=== PATIENT | female | born 1980 | race African-American/Black ===

== ENCOUNTER 2024-01-15 10:32 | Emergency (ER) | payer MEDICAID ==
[~2024-01-15] VITALS: Ht 165.1 cm; Wt 60.0 kg
[2024-01-15 10:34] VITALS: O2SAT 100
[2024-01-15] MEDS: ASPIRIN 325MG EC TABLET PO ONE (11:39)
[2024-01-15 11:41] LABS: CHLORIDE 106 mEq/L (98-107); POTASSIUM 3.8 mEq/L (3.5-5.1); SODIUM 138 mEq/L (136-145)
[2024-01-15 11:42] LABS: CALCIUM 9.1 mg/dL (8.7-10.4); CARBON DIOXIDE 24 mEq/L (21-32)
[2024-01-15 11:47] LABS: CREATININE 0.9 mg/dL (0.6-1.0); GLUCOSE 89 mg/dL (70-105); UREA NITROGEN BLOOD 7 mg/dL (9-23)
[2024-01-15 11:53] LABS: BASOPHILS % 1.2 % (0.0-2.0); EOSINOPHILS % 1.4 % (0.0-5.0); HEMATOCRIT. 33.3 % (36.0-48.0); HEMOGLOBIN. 11.1 g/dL (12.0-16.0); LYMPHOCYTES % 24.9 % (20.0-50.0); MEAN CORPUSCULAR HEMOGLOBIN 28.9 pg (28.0-32.0); MEAN CORPUSCULAR HGB CONC 33.2 g/dL (31.0-37.0); MEAN PLATELET VOLUME 7.4 fl (7.4-10.4); MONOCYTES % 14.3 % (2.0-8.0); NEUTROPHILS % 58.2 % (40.0-76.0); PLATELET 272 x1000/uL (130-400); RED BLOOD CELL COUNT 3.83 mill/uL (4.2-5.4); RED CELL DISTRIBUTION WIDTH 14.6 % (11.6-14.6); WHITE BLOOD COUNT 4.5 x1000/uL (4.5-11.0)
[2024-01-15 11:57] LABS: HCG SCREEN NEGATIVE
[2024-01-15 12:05] LABS: TROPONIN I HIGH SENSITIVITY < 4 ng/L (3.0-34)
[2024-01-15] MEDS ORDERED: TOPUD MT (14:25)
[2024-01-15] MEDS ORDERED: DEXT30SU17 MT (14:25)
[2024-01-15] MEDS ORDERED: ALBU90AE INH (14:25)
[2024-01-15 14:45] VITALS: BP 110/63; PULSE 67; RESP 17; TEMP 98.4
== END 2024-01-15 14:48 | disposition home or self-care (01) ==
LOC: ER 10:47
DX: R05.9 Cough, unspecified (principal); F17.200 Nicotine dependence, unspecified, uncomplicated; I49.9 Cardiac arrhythmia, unspecified; Z20.822 Contact with and (suspected) exposure to COVID-19
CPT/HCPCS: 36415; 71045; 80048; 83880; 84484; 84703; 85025; 85379; 87426; 93005; 99285

== ENCOUNTER 2024-01-17 12:12 | Emergency (ER) | payer MEDICAID ==
[~2024-01-17] VITALS: Ht 162.6 cm; Wt 50.0 kg
[~2024-01-17 12:12] MED LIST: ALBU90AE INH; DEXT30SU17 MT; TOPUD MT
[2024-01-17 12:14] VITALS: O2SAT 99
[2024-01-17 12:42] VITALS: BP 160/84; PULSE 90; RESP 19; TEMP 98.3
== END 2024-01-17 13:40 | disposition home or self-care (01) ==
LOC: ER 12:12
DX: R53.1 Weakness (principal); I10 Essential (primary) hypertension; Z86.79 Personal history of other diseases of the circulatory system
CPT/HCPCS: 99283

== ENCOUNTER 2024-01-26 12:05 | Emergency (ER) | payer MEDICAID ==
[~2024-01-26] VITALS: Ht 162.6 cm; Wt 68.0 kg
[2024-01-26 12:11] VITALS: BP 110/72; PULSE 65; RESP 16; TEMP 98.1; O2SAT 100
[2024-01-26 12:38] LABS: HEMATOCRIT 37.3 % (36.0-48.0); HEMOGLOBIN 12.2 g/dL (12.0-16.0); MEAN CORPUSCULAR HEMOGLOBIN 28.8 pg (28.0-32.0); MEAN CORPUSCULAR HGB CONC 32.8 g/dL (31.0-37.0); PLATELET 317 x1000/uL (130-400); RED BLOOD CELL COUNT 4.23 mill/uL (4.2-5.4); RED CELL DISTRIBUTION WIDTH 14.7 % (11.6-14.6); WHITE BLOOD COUNT 3.4 x1000/uL (4.5-11.0)
[2024-01-26 12:45] LABS: HCG SCREEN NEGATIVE
[2024-01-26 12:55] LABS: CHLORIDE 107 mEq/L (98-107); POTASSIUM 4.1 mEq/L (3.5-5.1); SODIUM 137 mEq/L (136-145)
[2024-01-26 12:56] LABS: CALCIUM 9.6 mg/dL (8.7-10.4); CARBON DIOXIDE 26 mEq/L (21-32)
[2024-01-26 13:01] LABS: CREATININE 0.9 mg/dL (0.6-1.0); GLUCOSE 88 mg/dL (70-105); UREA NITROGEN BLOOD 9 mg/dL (9-23)
[2024-01-26 13:03] LABS: ALANINE AMINOTRANSFERASE 10 IU/L (10-49); ALBUMIN 4.6 g/dL (3.2-4.8); ASPARTATE AMINOTRANSFERASE 15 IU/L (<34); BILIRUBIN TOTAL 0.5 mg/dL (0.1-1.0); PROTEIN TOTAL 7.6 g/dL (6.0-8.3)
== END 2024-01-26 14:03 | disposition home or self-care (01) ==
LOC: ER 12:05
DX: R20.2 Paresthesia of skin (principal); I10 Essential (primary) hypertension; E78.00 Pure hypercholesterolemia, unspecified; Z98.890 Other specified postprocedural states
CPT/HCPCS: 36415; 80053; 84703; 85027; 99283

== ENCOUNTER 2024-01-26 14:08 | Emergency (ER) | payer MEDICAID ==
[~2024-01-26] VITALS: Ht 167.6 cm; Wt 56.0 kg
[2024-01-26 14:14] VITALS: TEMP 97.2; O2SAT 99
[2024-01-26 17:34] VITALS: BP 118/78; PULSE 68; RESP 14
== END 2024-01-26 17:36 | disposition home or self-care (01) ==
LOC: ER 14:08
DX: R20.0 Anesthesia of skin (principal); E78.00 Pure hypercholesterolemia, unspecified; Z98.890 Other specified postprocedural states
CPT/HCPCS: 81025; 99284

== ENCOUNTER 2024-01-29 19:13 | Emergency (ER) | payer MEDICAID ==
[~2024-01-29] VITALS: Ht 170.2 cm; Wt 59.0 kg
[2024-01-29 19:26] VITALS: O2SAT 100
[2024-01-29 20:48] VITALS: BP 120/60; PULSE 75; RESP 14; TEMP 98.2
== END 2024-01-29 20:50 | disposition home or self-care (01) ==
LOC: ER 19:13
DX: R00.2 Palpitations (principal); F41.9 Anxiety disorder, unspecified; E78.00 Pure hypercholesterolemia, unspecified; I10 Essential (primary) hypertension
CPT/HCPCS: 71045; 93005; 99283; Z7610

== ENCOUNTER 2024-02-18 16:43 | Inpatient (IN) | payer MEDICAID ==
[~2024-02-18] VITALS: Ht 162.6 cm; Wt 51.3 kg
[2024-02-18 19:28] LABS: BASOPHILS % 0.8 % (0.0-2.0); EOSINOPHILS % 2.2 % (0.0-5.0); HEMATOCRIT. 36.4 % (36.0-48.0); LYMPHOCYTES % 27.2 % (20.0-50.0); MEAN CORPUSCULAR HEMOGLOBIN 28.6 pg (28.0-32.0); MEAN CORPUSCULAR HGB CONC 32.9 g/dL (31.0-37.0); MEAN PLATELET VOLUME 6.8 fl (7.4-10.4); MONOCYTES % 13.5 % (2.0-8.0); NEUTROPHILS % 56.3 % (40.0-76.0); PLATELET 264 x1000/uL (130-400); RED BLOOD CELL COUNT 4.18 mill/uL (4.2-5.4); RED CELL DISTRIBUTION WIDTH 14.6 % (11.6-14.6); WHITE BLOOD COUNT 4.3 x1000/uL (4.5-11.0)
[2024-02-18 19:32] LABS: CHLORIDE 106 mEq/L (98-107); POTASSIUM 4.6 mEq/L (3.5-5.1); SODIUM 138 mEq/L (136-145)
[2024-02-18 19:33] LABS: CARBON DIOXIDE 27 mEq/L (21-32)
[2024-02-18 19:34] LABS: CALCIUM 9.8 mg/dL (8.7-10.4)
[2024-02-18 19:38] LABS: CREATININE 0.9 mg/dL (0.6-1.0); GLUCOSE 85 mg/dL (70-105)
[2024-02-18 19:39] LABS: PARTIAL THROMBOPLASTIN TIME 27.8 sec (23.4-31.0); PROTHROMBIN TIME 11.1 sec (9.6-11.0)
[2024-02-18 19:40] LABS: TROPONIN I HIGH SENSITIVITY < 4 ng/L (3.0-34); UREA NITROGEN BLOOD < 5 mg/dL (9-23)
[2024-02-18] MEDS: ASPIRIN 325MG EC TABLET PO ONE (19:46)
[2024-02-18 20:02] LABS: HCG SCREEN NEGATIVE
[2024-02-18] MEDS: ONDANSETRON HCL 4MG/2ML INJ IV PRN (21:02)
[2024-02-18 23:15] VITALS: BP 134/65; PULSE 100; RESP 16; TEMP 36.4736
[2024-02-19] MEDS ORDERED: *PATIENT'S OWN MEDICATION STORAGE XX SCH (00:30)
[2024-02-19 06:00] LABS: BASOPHILS % 0.8 % (0.0-2.0); EOSINOPHILS % 2.2 % (0.0-5.0); HEMATOCRIT. 36.6 % (36.0-48.0); HEMOGLOBIN. 12.1 g/dL (12.0-16.0); LYMPHOCYTES % 29.6 % (20.0-50.0); MEAN CORPUSCULAR HEMOGLOBIN 28.8 pg (28.0-32.0); MEAN CORPUSCULAR HGB CONC 33.1 g/dL (31.0-37.0); MEAN PLATELET VOLUME 7.3 fl (7.4-10.4); MONOCYTES % 14.6 % (2.0-8.0); NEUTROPHILS % 52.8 % (40.0-76.0); PLATELET 278 x1000/uL (130-400); RED BLOOD CELL COUNT 4.21 mill/uL (4.2-5.4); RED CELL DISTRIBUTION WIDTH 14.9 % (11.6-14.6); WHITE BLOOD COUNT 3.9 x1000/uL (4.5-11.0)
[2024-02-19] MEDS ORDERED: IOHEXOL-350 100 ML BOTTLE ONE (07:16)
[2024-02-19 08:08] VITALS: BP 126/84; PULSE 78; RESP 20; TEMP 36.61404; O2SAT 100
[2024-02-19 09:02] LABS: CHLORIDE 107 mEq/L (98-107); POTASSIUM 3.4 mEq/L (3.5-5.1); SODIUM 139 mEq/L (136-145)
[2024-02-19 09:03] LABS: CARBON DIOXIDE 24 mEq/L (21-32)
[2024-02-19 09:04] LABS: CALCIUM 9.6 mg/dL (8.7-10.4)
[2024-02-19 09:08] LABS: CREATININE 0.9 mg/dL (0.6-1.0); GLUCOSE 82 mg/dL (70-105)
[2024-02-19 09:12] LABS: UREA NITROGEN BLOOD < 5 mg/dL (9-23)
[2024-02-19] MEDS: ASPIRIN 81MG EC TABLET PO SCH (11:00)
[2024-02-19 12:19] VITALS: BP 125/81; PULSE 77; RESP 20; TEMP 37.00296; O2SAT 98
[2024-02-19] MEDS: POTASSIUM CHLORIDE 20MEQ TABLET SR PO NR (13:42)
[2024-02-19] MEDS: CLOPIDOGREL 75MG TABLET PO SCH (13:43)
[2024-02-19 16:00] VITALS: BP 133/70; PULSE 81; RESP 20; TEMP 37.16964; O2SAT 99
[2024-02-19 20:00] VITALS: BP 132/79; PULSE 78; RESP 20; TEMP 36.44736; O2SAT 99
[2024-02-19] MEDS: ATORVASTATIN CALCIUM 40MG TABLET PO SCH (21:13)
[2024-02-20] VITALS: BP 113/65; PULSE 85; RESP 18; TEMP 36.72516; O2SAT 97
[2024-02-20 04:00] VITALS: BP 109/75; PULSE 81; RESP 20; TEMP 36.72516; O2SAT 99
[2024-02-20 08:17] VITALS: BP 116/82; PULSE 90; RESP 18; TEMP 35.94732; O2SAT 100
[2024-02-20 12:17] VITALS: BP 119/78; PULSE 86; RESP 20; TEMP 36.61404; O2SAT 100
[2024-02-20 13:22] LABS: VITAMIN B12 SERUM 990 pg/mL (211-911)
[2024-02-20 16:00] VITALS: BP 121/75; PULSE 85; RESP 18; TEMP 36.44736; O2SAT 100
[2024-02-20 17:18] LABS: *AMPHETAMINES SCREEN URINE NEGATIVE (NEGATIVE); *BARBITURATES SCREEN URINE NEGATIVE (NEGATIVE); *BENZODIAZEPINES SCREEN URINE NEGATIVE (NEGATIVE); *COCAINE SCREEN URINE NEGATIVE (NEGATIVE); CANNABINOID URINE SCREEN NEGATIVE (NEGATIVE); METHADONE URINE SCREEN NEGATIVE (NEGATIVE); OPIATES URINE SCREEN NEGATIVE (NEGATIVE); PHENCYCLIDINE URINE SCREEN NEGATIVE (NEGATIVE)
[2024-02-20 17:19] LABS: ECSTASY MDMA SCREEN URINE NEGATIVE (NEGATIVE)
[2024-02-20 20:00] VITALS: BP 126/80; PULSE 78; RESP 18; TEMP 36.6696; O2SAT 100
[2024-02-21] VITALS (9 sets, daily range): BP systolic 112–132; BP diastolic 73–97; PULSE 73–155; RESP 7–19; TEMP 36.33624–36.6696; O2SAT 99–100
[2024-02-21] MEDS ORDERED: ASPI-1406 PO (10:20)
[2024-02-21 11:29] LABS: BASOPHILS % 1.1 % (0.0-2.0); EOSINOPHILS % 2.1 % (0.0-5.0); HEMATOCRIT. 38.2 % (36.0-48.0); HEMOGLOBIN. 12.3 g/dL (12.0-16.0); LYMPHOCYTES % 22.5 % (20.0-50.0); MEAN CORPUSCULAR HEMOGLOBIN 28.1 pg (28.0-32.0); MEAN CORPUSCULAR HGB CONC 32.2 g/dL (31.0-37.0); MEAN CORPUSCULAR VOLUME 87.1 fL (81.0-99.0); MEAN PLATELET VOLUME 6.9 fl (7.4-10.4); MONOCYTES % 12.6 % (2.0-8.0); NEUTROPHILS % 61.7 % (40.0-76.0); PLATELET 291 x1000/uL (130-400); RED BLOOD CELL COUNT 4.39 mill/uL (4.2-5.4); RED CELL DISTRIBUTION WIDTH 15.1 % (11.6-14.6); WHITE BLOOD COUNT 3.2 x1000/uL (4.5-11.0)
[2024-02-21 11:32] LABS: CHLORIDE 106 mEq/L (98-107); POTASSIUM 3.7 mEq/L (3.5-5.1); SODIUM 139 mEq/L (136-145)
[2024-02-21 11:33] LABS: CALCIUM 9.4 mg/dL (8.7-10.4); CARBON DIOXIDE 28 mEq/L (21-32)
[2024-02-21 11:38] LABS: CREATININE 0.9 mg/dL (0.6-1.0); GLUCOSE 154 mg/dL (70-105)
[2024-02-21 12:07] LABS: UREA NITROGEN BLOOD < 5 mg/dL (9-23)
[2024-02-21] MEDS: DILTIAZEM HCL 5MG/ML 5ML VIAL IV NR ×2 (13:08→16:21)
[2024-02-21] MEDS: DILTIAZEM HCL 30MG TABLET PO SCH (13:08)
[2024-02-21] MEDS: AMIODARONE 200MG TABLET PO SCH (16:26)
[2024-02-21] MEDS ORDERED: DILTIAZEM HCL 5MG/ML 5ML VIAL IV PRN (16:30)
[2024-02-22] VITALS (10 sets, daily range): BP systolic 101–118; BP diastolic 73–79; PULSE 65–94; RESP 18–24; TEMP 36.6696–37.00296; O2SAT 98–100
[2024-02-22] MEDS ORDERED: DILT180T11 MT (11:52)
[2024-02-22] MEDS ORDERED: AMI2 PO (11:52)
[2024-02-22] MEDS: POLYETHYLENE GLYCOL 3350 (17GM) 1 DOSE PACK PO SCH (12:00)
[2024-02-23] MEDS ORDERED: DILTIAZEM HCL 90MG CAPSULE SR 12HR PO SCH (09:00)
[2024-02-23] MEDS ORDERED: AMIODARONE 200MG TABLET PO SCH (09:00)
[2024-02-23] MEDS ORDERED: ATOR10TA MT (14:55)
[2024-02-29] MEDS ORDERED: ATOR10TA69 MT (23:33)
== END 2024-02-22 14:15 | disposition home or self-care (01) | DRG 48 ==
LOC: ER 16:43 → EDBEDREQTM 21:08 → EDBEDREQ 21:08 → 7WST 22:34 → 5EST 02-21 14:40
PROVIDERS: ADMIT Internal Medicine; ATTEND Internal Medicine
DX: G90.8 Other disorders of autonomic nervous system (principal); G45.8 Other transient cerebral ischemic attacks and related syndromes; I47.10 Supraventricular tachycardia, unspecified; E78.00 Pure hypercholesterolemia, unspecified; E87.6 Hypokalemia; Z79.899 Other long term (current) drug therapy
CPT/HCPCS: 36415; 70496; 70498; 70551; 71045; 80048; 80061; 80305; 82607; 82962; 83036; 84153; 84443; 84484; 84703; 85025; 85651; 86038; 93005; 93306; 97162; 97165; 99291; J2405; J3490; Q9967

== ENCOUNTER 2024-02-25 10:59 | Emergency (ER) | payer MEDICAID ==
[~2024-02-25] VITALS: Ht 160 cm; Wt 60.0 kg
[~2024-02-25 10:59] MED LIST changes: -ALBU90AE INH; +ASPI-1406 PO; +ATOR10TA MT; -DEXT30SU17 MT; -TOPUD MT
[2024-02-25 11:05] VITALS: O2SAT 100
[2024-02-25 11:35] LABS: BASOPHILS % 0.5 % (0.0-2.0); EOSINOPHILS % 1.5 % (0.0-5.0); HEMATOCRIT. 36.8 % (36.0-48.0); HEMOGLOBIN. 12.2 g/dL (12.0-16.0); LYMPHOCYTES % 13.1 % (20.0-50.0); MEAN CORPUSCULAR HEMOGLOBIN 28.8 pg (28.0-32.0); MEAN CORPUSCULAR HGB CONC 33.2 g/dL (31.0-37.0); MEAN PLATELET VOLUME 6.9 fl (7.4-10.4); MONOCYTES % 11.8 % (2.0-8.0); NEUTROPHILS % 73.1 % (40.0-76.0); PLATELET 328 x1000/uL (130-400); RED BLOOD CELL COUNT 4.23 mill/uL (4.2-5.4); RED CELL DISTRIBUTION WIDTH 15.1 % (11.6-14.6); WHITE BLOOD COUNT 4.9 x1000/uL (4.5-11.0)
[2024-02-25 11:48] LABS: CHLORIDE 106 mEq/L (98-107); POTASSIUM 3.7 mEq/L (3.5-5.1); SODIUM 139 mEq/L (136-145)
[2024-02-25 11:49] LABS: CARBON DIOXIDE 28 mEq/L (21-32)
[2024-02-25 11:54] LABS: CREATININE 0.9 mg/dL (0.6-1.0); GLUCOSE 92 mg/dL (70-105)
[2024-02-25 12:00] LABS: TROPONIN I HIGH SENSITIVITY < 4 ng/L (3.0-34); UREA NITROGEN BLOOD < 5 mg/dL (9-23)
[2024-02-25 12:07] LABS: HCG SCREEN NEGATIVE
[2024-02-25] MEDS: DIAZEPAM 5 MG TABLET PO ONE (13:24)
[2024-02-25 15:09] LABS: TROPONIN I HIGH SENSITIVITY < 4 ng/L (3.0-34)
[2024-02-25 15:39] VITALS: BP 133/71; PULSE 80; RESP 18; TEMP 36.61404; O2SAT 100
[2024-02-29] MEDS ORDERED: ATOR10TA69 MT (23:33)
== END 2024-02-25 15:53 | disposition home or self-care (01) ==
LOC: ER 10:59
DX: R00.2 Palpitations (principal); E78.00 Pure hypercholesterolemia, unspecified
CPT/HCPCS: 36415; 80048; 84484; 84703; 85025; 93005; 99284

== ENCOUNTER 2024-03-03 07:33 | Emergency (ER) | payer MEDICAID ==
[~2024-03-03] VITALS: Ht 162.6 cm; Wt 50.0 kg
[~2024-03-03 07:33] MED LIST changes: +ATOR10TA69 MT
[2024-03-03 07:35] VITALS: O2SAT 100
[2024-03-03 08:12] LABS: HEMATOCRIT. 34.8 % (36.0-48.0); HEMOGLOBIN. 11.3 g/dL (12.0-16.0); MEAN CORPUSCULAR HEMOGLOBIN 28.5 pg (28.0-32.0); MEAN CORPUSCULAR HGB CONC 32.5 g/dL (31.0-37.0); MEAN CORPUSCULAR VOLUME 87.5 fL (81.0-99.0); MEAN PLATELET VOLUME 6.6 fl (7.4-10.4); PLATELET 293 x1000/uL (130-400); RED BLOOD CELL COUNT 3.98 mill/uL (4.2-5.4); RED CELL DISTRIBUTION WIDTH 15.1 % (11.6-14.6); WHITE BLOOD COUNT 3.1 x1000/uL (4.5-11.0)
[2024-03-03 08:13] LABS: DIFFERENTIAL COMMENT 1
[2024-03-03 08:20] LABS: CALCIUM 9.4 mg/dL (8.7-10.4); CARBON DIOXIDE 25 mEq/L (21-32); CHLORIDE 109 mEq/L (98-107); POTASSIUM 3.8 mEq/L (3.5-5.1); SODIUM 140 mEq/L (136-145)
[2024-03-03 08:25] LABS: CREATININE 0.9 mg/dL (0.6-1.0)
[2024-03-03 08:26] LABS: GLUCOSE 83 mg/dL (70-105); UREA NITROGEN BLOOD 10 mg/dL (9-23)
[2024-03-03 09:57] LABS: ANISOCYTOSIS 1+; PLATELET ESTIMATE NORMAL
[2024-03-03 10:46] VITALS: BP 112/74; PULSE 75; RESP 17; TEMP 37.00296; O2SAT 100
== END 2024-03-03 10:56 | disposition home or self-care (01) ==
LOC: ER 07:33 → CANBEDREQ 10:23 → ER 10:56
DX: R00.2 Palpitations (principal)
CPT/HCPCS: 80048; 83880; 85025; 36415; 71045; 93005; 99285; Z7610 ×3

== ENCOUNTER 2024-03-03 11:41 | Emergency (ER) | payer MEDICAID ==
[~2024-03-03] VITALS: Ht 162.6 cm; Wt 51.0 kg
[2024-03-03 12:03] VITALS: BP 133/74; PULSE 82; RESP 16; TEMP 98; O2SAT 100
[2024-03-03 12:17] LABS: BASOPHILS % 0.7 % (0.0-2.0); EOSINOPHILS % 0.7 % (0.0-5.0); HEMATOCRIT. 35.5 % (36.0-48.0); HEMOGLOBIN. 11.8 g/dL (12.0-16.0); LYMPHOCYTES % 17.1 % (20.0-50.0); MEAN CORPUSCULAR HEMOGLOBIN 28.9 pg (28.0-32.0); MEAN CORPUSCULAR HGB CONC 33.1 g/dL (31.0-37.0); MEAN CORPUSCULAR VOLUME 87.2 fL (81.0-99.0); MEAN PLATELET VOLUME 6.5 fl (7.4-10.4); MONOCYTES % 10.3 % (2.0-8.0); NEUTROPHILS % 71.2 % (40.0-76.0); PLATELET 308 x1000/uL (130-400); RED BLOOD CELL COUNT 4.08 mill/uL (4.2-5.4); RED CELL DISTRIBUTION WIDTH 14.9 % (11.6-14.6); WHITE BLOOD COUNT 5.6 x1000/uL (4.5-11.0)
[2024-03-03 12:27] LABS: CHLORIDE 106 mEq/L (98-107); POTASSIUM 4.3 mEq/L (3.5-5.1); SODIUM 137 mEq/L (136-145)
[2024-03-03 12:28] LABS: CALCIUM 9.9 mg/dL (8.7-10.4); CARBON DIOXIDE 23 mEq/L (21-32)
[2024-03-03 12:33] LABS: CREATININE 0.9 mg/dL (0.6-1.0); GLUCOSE 80 mg/dL (70-105); UREA NITROGEN BLOOD 8 mg/dL (9-23)
[2024-03-03 12:35] LABS: ALANINE AMINOTRANSFERASE 11 IU/L (10-49); ALBUMIN 4.8 g/dL (3.2-4.8); ASPARTATE AMINOTRANSFERASE 16 IU/L (<34); BILIRUBIN DIRECT 0.2 mg/dL (<=3.0); BILIRUBIN TOTAL 0.7 mg/dL (0.1-1.0)
[2024-03-03 12:36] LABS: PROTEIN TOTAL 7.8 g/dL (6.0-8.3)
[2024-03-03 14:23] LABS: TROPONIN I HIGH SENSITIVITY < 4 ng/L (3.0-34)
[2024-03-03 14:26] LABS: HCG SCREEN NEGATIVE
[2024-03-26] MEDS ORDERED: CELE-146 MT (17:20)
[2024-03-26] MEDS ORDERED: BACL-141 MT (17:20)
[2024-03-26] MEDS ORDERED: METO25TA6 PO (18:29)
[2024-03-28] MEDS ORDERED: ASPI-1160 PO (15:32)
[2024-03-28] MEDS ORDERED: DIGO-34 PO (15:32)
[2024-03-28] MEDS ORDERED: ATOR20TA PO (15:32)
[2024-03-28] MEDS ORDERED: FAMO20TA8 PO (15:32)
[2024-03-28] MEDS ORDERED: DILT60TA41 PO (15:32)
[2024-04-01] MEDS ORDERED: AMI2 MT (10:23)
[2024-04-01] MEDS ORDERED: DILT30TA3 PO (10:23)
[2024-04-03] MEDS ORDERED: AMI2 MT (13:13)
[2024-04-03] MEDS ORDERED: DILT30TA3 MT (13:13)
== END 2024-03-03 16:45 | disposition home or self-care (01) ==
LOC: ER 11:41
DX: R00.2 Palpitations (principal); M25.512 Pain in left shoulder; E78.00 Pure hypercholesterolemia, unspecified
CPT/HCPCS: 36415; 73030; 80048; 80076; 84484; 84703; 85025; 99284

== ENCOUNTER 2024-04-05 06:31 | Emergency (ER) | payer MEDICAID ==
[~2024-04-05] VITALS: Ht 165.1 cm; Wt 73.0 kg
[~2024-04-05 06:31] MED LIST changes: +AMI2 MT; +ASPI-1160 PO; -ASPI-1406 PO; -ATOR10TA MT; -ATOR10TA69 MT; +ATOR20TA PO; +BACL-141 MT; +DILT30TA3 PO; +FAMO20TA8 PO
[2024-04-05] MEDS ORDERED: KETOROLAC 30MG/ML VIAL IV STA (06:48)
[2024-04-05 06:51] VITALS: TEMP 98.4; O2SAT 100
[2024-04-05 07:49] LABS: HEMATOCRIT. 35.8 % (36.0-48.0); HEMOGLOBIN. 11.7 g/dL (12.0-16.0); MEAN CORPUSCULAR HEMOGLOBIN 28.8 pg (28.0-32.0); MEAN CORPUSCULAR HGB CONC 32.6 g/dL (31.0-37.0); MEAN CORPUSCULAR VOLUME 88.5 fL (81.0-99.0); MEAN PLATELET VOLUME 6.9 fl (7.4-10.4); PLATELET 258 x1000/uL (130-400); RED BLOOD CELL COUNT 4.05 mill/uL (4.2-5.4); WHITE BLOOD COUNT 3.6 x1000/uL (4.5-11.0)
[2024-04-05 07:50] LABS: DIFFERENTIAL COMMENT 1
[2024-04-05 07:51] LABS: CHLORIDE 106 mEq/L (98-107); POTASSIUM 3.4 mEq/L (3.5-5.1); SODIUM 141 mEq/L (136-145)
[2024-04-05 07:52] LABS: CARBON DIOXIDE 29 mEq/L (21-32)
[2024-04-05 07:53] LABS: CALCIUM 9.7 mg/dL (8.7-10.4)
[2024-04-05 07:57] LABS: GLUCOSE 96 mg/dL (70-105); UREA NITROGEN BLOOD 9 mg/dL (9-23)
[2024-04-05 08:08] LABS: HCG SCREEN NEGATIVE
[2024-04-05 08:12] LABS: TROPONIN I HIGH SENSITIVITY < 4 ng/L (3.0-34)
[2024-04-05] MEDS: POTASSIUM CHLORIDE 20MEQ/PACKET PO NR (09:24)
[2024-04-05] MEDS: KETOROLAC 30MG/ML VIAL IV NR (09:58)
[2024-04-05 10:02] LABS: TROPONIN I HIGH SENSITIVITY < 4 ng/L (3.0-34)
[2024-04-05 11:04] LABS: ANISOCYTOSIS 1+; PLATELET ESTIMATE NORMAL
[2024-04-05] MEDS ORDERED: IOHEXOL-350 100 ML BOTTLE ONE (11:37)
[2024-04-05] MEDS ORDERED: IBUP-2028 MT (12:41)
[2024-04-05] MEDS ORDERED: CYCL10TA21 MT (12:41)
[2024-04-05 13:06] VITALS: BP 122/72; PULSE 72; RESP 14; O2SAT 100
== END 2024-04-05 13:07 | disposition home or self-care (01) ==
LOC: ER 06:31
DX: R07.89 Other chest pain (principal); M54.12 Radiculopathy, cervical region; E78.00 Pure hypercholesterolemia, unspecified; Z79.899 Other long term (current) drug therapy; Z79.82 Long term (current) use of aspirin; Z79.1 Long term (current) use of non-steroidal anti-inflammatories (NSAID)
CPT/HCPCS: 80048; 84703; 85025; 84484; 36415; 71275; 96374; 99285; Q9967; J1885; Z7610

== ENCOUNTER 2024-04-10 03:42 | Emergency (ER) | payer MEDICAID ==
[~2024-04-10] VITALS: Ht 162.6 cm; Wt 65.0 kg
[~2024-04-10 03:42] MED LIST changes: +CYCL10TA21 MT; +IBUP-2028 MT
[2024-04-10 03:44] VITALS: O2SAT 100
[2024-04-10] MEDS ORDERED: LORAZEPAM 0.5MG TABLET PO ONE (04:15)
[2024-04-10] MEDS: LORAZEPAM 0.5MG TABLET PO NR (05:15)
[2024-04-10] MEDS: KETOROLAC 15MG/ML VIAL IM ONE (05:30)
[2024-04-10 06:44] VITALS: BP 134/66; PULSE 78; RESP 18; TEMP 36.89184; O2SAT 98
== END 2024-04-10 06:47 | disposition home or self-care (01) ==
LOC: ER 03:42
DX: M54.12 Radiculopathy, cervical region (principal); R00.2 Palpitations; E78.00 Pure hypercholesterolemia, unspecified; Z79.899 Other long term (current) drug therapy; Z98.890 Other specified postprocedural states
CPT/HCPCS: 99283; 71045; 81025; 93005; 96372; J1885

== ENCOUNTER 2024-04-14 23:32 | Emergency (ER) | payer MEDICAID ==
[~2024-04-14] VITALS: Ht 167.6 cm; Wt 65.0 kg
[2024-04-14 23:34] VITALS: O2SAT 100
[2024-04-15] MEDS ORDERED: ACETAMINOPHEN 325MG TABLET PO ONE (02:00)
[2024-04-15 03:05] LABS: CHLORIDE 104 mEq/L (98-107); POTASSIUM 3.9 mEq/L (3.5-5.1); SODIUM 138 mEq/L (136-145)
[2024-04-15 03:06] LABS: CARBON DIOXIDE 27 mEq/L (21-32)
[2024-04-15 03:11] LABS: CREATININE 1.1 mg/dL (0.6-1.0); GLUCOSE 80 mg/dL (70-105); UREA NITROGEN BLOOD 10 mg/dL (9-23)
[2024-04-15] MEDS: ACETAMINOPHEN 325MG TABLET PO NR (03:31)
[2024-04-15 04:05] LABS: TROPONIN I HIGH SENSITIVITY < 4 ng/L (3.0-34)
[2024-04-15 05:03] LABS: BASOPHILS % 0.9 % (0.0-2.0); EOSINOPHILS % 3.2 % (0.0-5.0); HEMATOCRIT. 33.1 % (36.0-48.0); HEMOGLOBIN. 11.2 g/dL (12.0-16.0); LYMPHOCYTES % 25.7 % (20.0-50.0); MEAN CORPUSCULAR HEMOGLOBIN 29.8 pg (28.0-32.0); MEAN CORPUSCULAR HGB CONC 33.7 g/dL (31.0-37.0); MEAN CORPUSCULAR VOLUME 88.3 fL (81.0-99.0); MEAN PLATELET VOLUME 6.4 fl (7.4-10.4); MONOCYTES % 14.5 % (2.0-8.0); NEUTROPHILS % 55.7 % (40.0-76.0); PLATELET 280 x1000/uL (130-400); RED BLOOD CELL COUNT 3.75 mill/uL (4.2-5.4); RED CELL DISTRIBUTION WIDTH 17.1 % (11.6-14.6)
[2024-04-15 05:43] LABS: TROPONIN I HIGH SENSITIVITY < 4 ng/L (3.0-34)
[2024-04-15] MEDS ORDERED: TOPUD MT (05:48)
[2024-04-15 05:49] VITALS: BP 121/75; PULSE 70; RESP 19; TEMP 36.89184; O2SAT 100
== END 2024-04-15 06:05 | disposition home or self-care (01) ==
LOC: ER 23:32 → EDBEDREQ 04-15 00:18 → ER 04-15 06:05
DX: R00.2 Palpitations (principal); R00.0 Tachycardia, unspecified; E78.00 Pure hypercholesterolemia, unspecified; Z79.82 Long term (current) use of aspirin; Z79.899 Other long term (current) drug therapy
CPT/HCPCS: 36415 ×2; 71045; 93005; 99285; 80048; 83880; 85025; 84484; Z7610 ×2